=== PATIENT | male | born 1990 | race African-American/Black ===

== ENCOUNTER 2018-12-13 19:26 | Emergency (ER) | payer OTHER ==
[~2018-12-13] VITALS: Ht 180.3 cm; Wt 85.0 kg
[2018-12-13 19:30] VITALS: BP 158/68; PULSE 68; RESP 20; Ht 180.3 cm; Wt 85.0 kg
--- NOTE | 2018-12-13 20:53 | ERD ---
ER Documentation Chief Complaint Chief Complaint Pt reports a partner told him she was + Chlamydia, denies s/s HPI 28-year-old male reports that a sexual partner he was sleeping with 2 days ago called him and told him that she has chlamydia. He states that she has been the only sexual partner in the past couple months. He denies any symptoms of chlamydia and he is unsure if he has it or not. He states he denies any fevers, discharge, testicular pain, penile pain, redness, enlarged lymph nodes. He denies a previous history of STIs. He has not taken any medication and states that he is here just to get treatment and move on. ROS All systems reviewed and are negative except as per history of present illness. Allergies Allergies: Coded Allergies: No Known Allergy (Unverified , 12/13/18) PMhx/Soc Medical and Surgical Hx: pt denies Medical Hx, pt denies Surgical Hx Hx Alcohol Use: No Hx Substance Use: No Hx Tobacco Use: No Smoking Status: Never smoker FmHx Family History: No diabetes Physical Exam Vitals Vital Signs Date Temp Pulse Resp B/P (MAP) Pulse Ox O2 O2 Flow FiO2 Time Delivery Rate 12/13/18 98.0 68 20 158/68 100 19:30 (98) Physical Exam Const: No acute distress Head: Atraumatic Eyes: Normal Conjunctiva ENT: Normal External Ears, Nose and Mouth. Neck: Full range of motion. Resp: Clear to auscultation bilaterally Cardio: Regular rate and rhythm, no murmurs Abd: Soft, non tender, non distended. Skin: No petechiae or rashes Back: No midline or flank tenderness : Circumcised penis. No discharge, no tenderness, nonpainful testicles. No enlarged lymph nodes Ext: No cyanosis, or edema Neur: Awake and alert Psych: Normal Mood and Affect Results 24 hrs Laboratory Tests Test 12/13/18 20:46 Urine Color YELLOW Urine Clarity CLEAR Urine pH 6.0 Urine Specific [place] 1.025 Urine Ketones TRACE mg/dL Urine Nitrite NEGATIVE mg/dL Urine Bilirubin NEGATIVE mg/dL Urine Urobilinogen NEGATIVE mg/dL Urine Leukocyte Esterase NEGATIVE Katherine/ul Urine Hemoglobin NEGATIVE mg/dL Urine Glucose NEGATIVE mg/dL Urine Total Protein NEGATIVE mg/dl Current Medications Medications Dose Sig/[place] Start Time Status Last (Trade) Ordered Route PRN Stop Time Admin Dose Reason Admin 1,000 mg ONCE ONCE 12/13/18 DC 12/13/18 Azithromycin PO 21:00 20:46 (Zithromax) 12/13/18 21:01 Ceftriaxone 250 mg ONCE ONCE 12/13/18 DC 12/13/18 Sodium IM 21:00 20:46 (Rocephin) 12/13/18 21:01 Lidocaine 2.2 ml ONCE ONCE 12/13/18 DC 12/13/18 (Xylocaine INJ 21:00 20:46 1% (Mpf)) 12/13/18 21:01 Procedures/MDM ED COURSE: The patient was stable throughout ED course. I kept the patient informed of laboratory and diagnostic imaging results throughout the ED course. MEDICATIONS GIVEN: Ceftriaxone, azithromycin, lidocaine Patient tolerated medication well with no adverse reactions. Patient reported improvement in pain. MEDICAL DECISION MAKING: Patient is a 28-year-old male reporting to ED complaining of possible chlamydia infection. He denies any symptoms but states that his sexual partner of 2 days ago called him and told him that she is positive for chlamydia currently. On physical exam patient's patient's genitourinary region was unremarkable. No evidence of severe infection, penile discharge, torsion, priapism, or paraphymosis. Patient stated that he wanted to be treated for chlamydia today so he was given azithromycin, ceftriaxone with lidocaine. Urinalysis was ordered and coronary chlamydia testing was done. We will call patient with the results. Vital signs were reviewed. Patient is afebrile. Patient was not hypoxic. Patient was hemodynamically stable. Patient was told to follow up with primary care for further care and management. PRESCRIPTION: none DISCHARGE: At this time, patient is stable for discharge and outpatient management. I have instructed the patient to follow-up with his/her primary care physician in 1-2 days. I have discussed with the patient the possibility of needing to see a specialist for further workup and imaging studies if symptoms persist. I have instructed the patient to promptly return to the ER for any new or worsening symptoms including increased pain, fever, nausea, vomiting, weakness or LOC. The patient expressed understanding of and agreement with this plan. All questions were answered. Home care instructions were provided. Disclaimer: Inadvertent spelling and grammatical errors are likely due to EHR/dictation software use and do not reflect on the overall quality of patient care. Also, please note that the electronic time recorded on this note does not necessarily reflect the actual time of the patient encounter. Departure Diagnosis: Primary Impression: STI (sexually transmitted infection) Condition: Fair Patient Instructions: Gonorrhea, Chlamydia, Male Referrals: [facility] YOU HAVE RECEIVED A MEDICAL SCREENING EXAM AND THE RESULTS INDICATE THAT YOU DO NOT HAVE A CONDITION THAT REQUIRES URGENT TREATMENT IN THE EMERGENCY DEPARTMENT. FURTHER EVALUATION AND TREATMENT OF YOUR CONDITION CAN WAIT UNTIL YOU ARE SEEN IN YOUR DOCTORS OFFICE WITHIN THE NEXT 1-2 DAYS. IT IS YOUR RESPONSIBILITY TO MAKE AN APPOINTMENT FOR FOLOW-UP CARE. IF YOU HAVE A PRIMARY DOCTOR --you should call your primary doctor and schedule an appointment IF YOU DO NOT HAVE A PRIMARY DOCTOR YOU CAN CALL OUR PHYSICIAN REFERRAL HOTLINE AT IF YOU CAN NOT AFFORD TO SEE A PHYSICIAN YOU CAN CHOSE FROM THE FOLLOWING [facility] [address] [address] [address] [facility] [address] [facility] [facility] [address] [facility] [address] [facility] [address] [facility]. [facility] [address] [facility]. [facility] YOU HAVE RECEIVED A MEDICAL SCREENING EXAM AND THE RESULTS INDICATE THAT YOU DO NOT HAVE A CONDITION THAT REQUIRES URGENT TREATMENT IN THE EMERGENCY DEPARTMENT. FURTHER EVALUATION AND TREATMENT OF YOUR CONDITION CAN WAIT UNTIL YOU ARE SEEN IN YOUR DOCTORS OFFICE WITHIN THE NEXT 1-2 DAYS. IT IS YOUR RESPONSIBILITY TO MAKE AN APPOINTMENT FOR FOLOW-UP CARE. IF YOU HAVE A PRIMARY DOCTOR --you should call your primary doctor and schedule and appointment IF YOU DO NOT HAVE A PRIMARY DOCTOR YOU CAN CALL OUR PHYSICIAN REFERRAL HOTLINE AT . IF YOU CAN NOT AFFORD TO SEE A PHYSICIAN YOU CAN CHOSE FROM THE FOLLOWING [facility] INSTITUTIONS: [facility] [address] [place] [address] [facility] [address] [place] [address] [facility] [address] [place] [address] ELI DAVIS PA-C Dec 13, 2018 20:53
[2018-12-13] MEDS ORDERED: CEFTRIAXONE 250 MG INJ IM ONE (21:00)
[2018-12-13] MEDS ORDERED: AZITHROMYCIN 500 MG TAB PO ONE (21:00)
[2018-12-13] MEDS ORDERED: LIDOCAINE 1% (MPF) 5 ML VIAL INJ ONE (21:00)
== END 2018-12-13 21:02 | disposition home or self-care (01) ==
LOC: FTE 19:26
DX: A56.8 Sexually transmitted chlamydial infection of other sites (principal)
CPT/HCPCS: 81003; 87591; 96372; 99284; J0696